=== PATIENT | male | born 1990 | race African-American/Black ===

== ENCOUNTER 2016-12-13 12:43 | Emergency (ER) | payer SELFPAY ==
[2016-12-13 13:11] LABS: Basophils % (Auto) 0.5 % (0.0-1.8); Eosinophils % (Auto) 0.3 % (0.0-4.3); Hematocrit 44.7 % (35.5-45.6); Hemoglobin 15.3 gm/dl (11.8-15.2); Mean Corpuscular HGB Conc 34 % (32-34); Mean Corpuscular Hemoglobin 29 pg (28-32); Mean Corpuscular Volume 86 fl (84-94); Platelet Count 203 K/mm3 (140-440); Red Blood Count 5.19 M/mm3 (3.65-5.03); Red Cell Distribution Width 12.5 % (13.2-15.2); White Blood Count 14.5 K/mm3 (4.5-11.0)
[2016-12-13 13:26] LABS: Alanine Aminotransferase 33 units/L (7-56); Albumin 4.3 g/dL (3.9-5); Albumin/Globulin Ratio 1.4 %; Alkaline Phosphatase 88 units/L (35-129); Anion Gap 16 mmol/L; BUN/Creatinine Ratio 6.66; Bilirubin,Total 0.8 mg/dL (0.1-1.2); Blood Urea Nitrogen 8 mg/dL (9-20); Calcium 9.2 mg/dL (8.4-10.2); Carbon Dioxide 27 mmol/L (22-30); Chloride 96.4 mmol/L (98-107); Glucose 102 mg/dL (75-100); Lipase 34 units/L (13-60); Potassium 3.6 mmol/L (3.6-5.0); Sodium 136 mmol/L (137-145); Total Protein 7.3 g/dL (6.3-8.2)
[2016-12-13 13:38] LABS: Bacteria,Urine 1+ /HPF (Negative); Bilirubin,Urine NEG (Negative); Blood,Urine MOD (Negative); Ketones,Urine 20 mg/dL (Negative); Leukocyte Esterase,Urine NEG (Negative); Mucus,Urine FEW /HPF; Nitrite,Urine NEG (Negative)
[2016-12-13] MEDS ORDERED: NACL 0.9% 1000 ML 1,000 ML IV ONE (18:59)
[2016-12-13] MEDS ORDERED: MORPHINE IV ONE (18:59)
[2016-12-13] MEDS ORDERED: ZOFRAN IV ONE (18:59)
[2016-12-13] MEDS ORDERED: TORADOL IV ONE (18:59)
[2016-12-13] MEDS ORDERED: PEPCID IV ONE (19:00)
--- NOTE | 2016-12-13 19:25 | Emergency Department Report ---
ED Abdominal Pain HPI - General Chief Complaint: Abdominal Pain Stated Complaint: RT SIDE PAIN Time Seen by Provider: 12/13/16 18:51 Source: patient Mode of arrival: Ambulatory Limitations: No Limitations - History of Present Illness Initial Comments: 26-year-old male with no significant past medical history presents to the hospital complaining of right upper quadrant pain for the past 3 days. Pain is described as sharp and bloating feeling, intermittent, rated 8/10 intensity, worse with palpation. No alleviating factors. Positive intermittent nausea vomiting reported without diarrhea, dysuria, fever, hematuria. - Related Data Home Medications Medication Instructions Recorded Confirmed Last Taken No Known Home Medications [No 12/13/16 12/13/16 Unknown Reported Home Medications] Allergies Allergy/AdvReac Type Severity Reaction Status Date / Time No Known Allergies Allergy Unverified 12/13/16 12:45 ED Review of Systems ROS: Stated complaint: RT SIDE PAIN Other details as noted in HPI Comment: All other systems reviewed and negative Other: Constitutional: No fevers chills Eyes: No eye pain visual changes ENT: No ear pain or throat pain Neck: Denies pain Respiratory: Denies cough wheezing shortness of breath Cardiovascular: Denies chest pain, palpitations, syncope GI: As per HPI : Denies dysuria Musculoskeletal: Denies back pain Skin: Denies rash, lesions, erythema Neurologic: Denies headache, numbness, weakness Psychiatric: Denies suicidal ideation, hallucinations ED Past Medical Hx - Past Medical History Previous Medical History?: No - Surgical History Past Surgical History?: Yes Additional Surgical History: Jaw surgery - Social History Smoking Status: Current Every Day Smoker Substance Use Type: Marijuana - Medications Home Medications: Home Medications Medication Instructions Recorded Confirmed Last Taken Type No Known Home Medications [No 12/13/16 12/13/16 Unknown History Reported Home Medications] ED Physical Exam - General Limitations: No Limitations - Other Other exam information: General: No limitations, patient is alert in no acute distress Head exam: Atraumatic, normocephalic Eyes exam: Normal appearance, pupils equal reactive to light, extraocular movements intact ENT: Moist mucous membrane, normal oropharynx Neck exam: Normal inspection, full range of motion Respiratory exam: Clear to auscultation bilateral, no wheezes, rales, crackles Cardiovascular: Normal rate and rhythm, normal heart sounds Abdomen: Soft, nondistended, right upper quadrant tenderness, with normal bowel sounds, no rebound, or guarding Extremity: Full range of motion normal inspection no deformity Back: Normal Inspection, full range of motion, no tenderness Neurologic: Alert, oriented x3, cranial nerves intact, no motor or sensory deficit Psychiatric: normal affect, normal mood Skin: Warm, dry, intact ED Course Vital Signs 12/13/16 12/13/16 12/13/16 12:45 20:35 20:41 Temperature 98.5 F Pulse Rate 87 84 Respiratory 18 12 18 Rate Blood Pressure 153/108 136/86 O2 Sat by Pulse 99 99 98 Oximetry 12/13/16 12/13/16 12/13/16 21:00 21:30 23:09 Temperature Pulse Rate 92 H 83 77 Respiratory 17 18 15 Rate Blood Pressure 131/90 123/76 129/75 O2 Sat by Pulse 99 99 99 Oximetry - Reevaluation(s) Reevaluation #1: 12/14/16 00:20 Patient's pain improved with morphine, Zofran, normal saline, and Toradol. Pepcid also given. Levaquin IV and additional liter of saline ordered after consultation with neurology and plan for transfer - Consultations Consultation #1: 12/14/16 00:[address] Wang interventional radiologist content strategist. Patient does not meet criteria for nephrostomy tube at this time. Recommend urology consultation for possible stent placement. Urgency is stent placement should be discussed with neurologist. Consultation #2: 12/14/16 00:01 We do not have urology content strategist today therefore [facility] urologist paged. Awaiting callback. 12/14/16 00:21 Dr. Traore urologist at [facility] has agreed to accept patient for transfer. ED Medical Decision Making - Lab Data Result diagrams: 12/13/16 12:55 12/13/16 12:55 Lab Results 12/13/16 12/13/16 12/13/16 Range/Units 12:55 12:55 13:04 WBC 14.5 H (4.5-11.0) K/mm3 RBC 5.19 H (3.65-5.03) M/mm3 Hgb 15.3 H (11.8-15.2) gm/dl Hct 44.7 (35.5-45.6) % MCV 86 (84-94) fl MCH 29 (28-32) pg MCHC 34 (32-34) % RDW 12.5 L (13.2-15.2) % Plt Count 203 (140-440) K/mm3 Lymph % (Auto) 13.6 (13.4-35.0) % Lee % (Auto) 11.1 H (0.0-7.3) % Eos % (Auto) 0.3 (0.0-4.3) % Baso % (Auto) 0.5 (0.0-1.8) % Lymph # 2.0 (1.2-5.4) K/mm3 Lee # 1.6 H (0.0-0.8) K/mm3 Eos # 0.1 (0.0-0.4) K/mm3 Baso # 0.1 (0.0-0.1) K/mm3 Seg Neutrophils % 74.5 H (40.0-70.0) % Seg Neutrophils # 10.8 H (1.8-7.7) K/mm3 Sodium 136 L (137-145) mmol/L Potassium 3.6 (3.6-5.0) mmol/L Chloride 96.4 L (98-107) mmol/L Carbon Dioxide 27 (22-30) mmol/L Anion Gap 16 mmol/L BUN 8 L (9-20) mg/dL Creatinine 1.2 (0.8-1.5) mg/dL Estimated GFR > 60 ml/min BUN/Creatinine Ratio 6.66 % Glucose 102 H (75-100) mg/dL Calcium 9.2 (8.4-10.2) mg/dL Total Bilirubin 0.8 (0.1-1.2) mg/dL AST 29 (5-40) units/L ALT 33 (7-56) units/L Alkaline Phosphatase 88 (35-129) units/L Total Protein 7.3 (6.3-8.2) g/dL Albumin 4.3 (3.9-5) g/dL Albumin/Globulin Ratio 1.4 % Lipase 34 (13-60) units/L Urine Color Yellow (Yellow) Urine Turbidity Cloudy (Clear) Urine pH 7.0 (5.0-7.0) Ur Specific [place] 1.019 (1.003-1.030) Urine Protein 30 mg/dl (Negative) mg/dL Urine Glucose (UA) Neg (Negative) mg/dL Urine Ketones 20 (Negative) mg/dL Urine Blood Mod (Negative) Urine Nitrite Neg (Negative) Urine Bilirubin Neg (Negative) Urine Urobilinogen 2.0 (<2.0) mg/dL Ur Leukocyte Esterase Neg (Negative) Urine WBC (Auto) 14.0 H (0.0-6.0) /HPF Urine RBC (Auto) 64.0 (0.0-6.0) /HPF Urine Bacteria (Auto) 1+ (Negative) /HPF Amorphous Crystals 1+ Urine Mucus Few /HPF - Radiology Data Radiology results: report reviewed Abdominal ultrasound: Gallbladder normal. Right kidney shows mild hydronephrosis this is nonspecific. Distal ureteral obstructive process cannot be excluded because of this. Small amount nonspecific free fluid in the posterior upper right abdomen. CT abdomen and pelvis without contrast: 8 mm partially obstructing stone in the very proximal right ureter slightly beyond the right renal pelvis. This is causing moderate right hydronephrosis and dilatation of the very proximal right ureter. - Medical Decision Making Unfortunately we do not have urology coverage. Case discussed with urologist Dr. Traore at [facility]. 8 mm stone unlikely to pass. She has agreed to accept patient for transfer and admission for lithotripsy/stenting. - Differential Diagnosis biliary colic, hepatitis, pancreatitis, gastritis, cholecystitis Critical Care Time: No Critical care attestation.: If time is entered above; I have spent that time in minutes in the direct care of this critically ill patient, excluding procedure time. ED Disposition Clinical Impression: Right ureteral stone, Renal colic on right side Disposition: DISCHARGED TO HOME OR SELFCARE Is pt being admited?: No Does the pt Need Aspirin: No Condition: Stable Time of Disposition: 00:19 (Transfer to [facility] Dr Traore)
--- NOTE | 2016-12-13 20:35 | Ultrasound Report ---
FINAL REPORT PROCEDURE: US ABDOMEN LIMITED TECHNIQUE: Real-time sonography was performed of the right upper quadrant gallbladder region with image documentation. CPT 46908 HISTORY: Right upper quadrant abdominal pain. Nausea and vomiting COMPARISON: No prior studies are available for comparison. FINDINGS: There is no ultrasound evidence of stones or sludge in the gallbladder. The gallbladder wall thickness is normal measuring 2.6 millimeters. The common bile duct is normal measuring 2.9 millimeters. The visualized portions of liver show no ultrasound abnormality. The proximal abdominal aorta has normal measurement at 2.0 millimeters in diameter. The mid and distal aorta is are not seen. The pancreas shows no ultrasound abnormality. The right kidney measures 12.7 centimeters in length. The right kidney shows mild hydronephrosis. The right kidney shows no contour abnormality by ultrasound otherwise. There is no ultrasound evidence of echogenic calculi within kidney itself. A small amount of nonspecific free fluid is noted in the abdomen in Morison's pouch anterior to the right kidney. The left kidney and the spleen are not evaluated on this limited right upper quadrant gallbladder region only ultrasound.. IMPRESSION: 1. The right kidney shows mild hydronephrosis. This is nonspecific. However a distal ureteral obstructive process cannot be excluded because of this. 2. The gallbladder shows no ultrasound abnormality. 3. There is a small amount of nonspecific free fluid in the posterior upper right abdomen.
--- NOTE | 2016-12-13 23:16 | Cat Scan Report ---
FINAL REPORT PROCEDURE: CT ABDOMEN PELVIS WO CON TECHNIQUE: Computerized axial tomography of the abdomen and pelvis was performed without intravenous contrast. This study is performed without intravascular contrast material and its sensitivity for abdominal and pelvic pathology, including neoplasms, inflammation, abscess, free fluid, thrombosis, arterial dissection and infarction, is reduced compared with a contrast enhanced study. Oral contrast was also not given HISTORY: Right-sided abdominal pain. Hematuria. Vomiting. COMPARISON: There no prior CT scans to compare. Reference is made to abdomen ultrasound performed earlier on this same day of December 13, 2016 FINDINGS: Visualized lower thorax: There is mild atelectasis in both lung bases.. Liver: Normal size and attenuation. Spleen: Normal size and attenuation. Gallbladder and biliary system: Normal. Pancreas: Normal. Adrenals: Normal. Kidneys: There is moderate hydronephrosis of the right kidney and mild dilation of the proximal right ureter down to an 8 millimeter partially obstructing stone in the very proximal right ureter about 2 centimeters beyond the renal pelvis. This stone is roughly at the level of the L2-L3 disc space. The left kidney and ureter appear unremarkable. GI tract: The bowel appears unremarkable when considering lack of oral contrast. The appendix is seen and appears normal. Lymph nodes and mesentery: Normal. Vasculature: Normal. Bladder: Normal. Reproductive organs: Normal. Peritoneum: No free fluid. Musculoskeletal structures: No significant abnormality. Other: None. IMPRESSION: 1. There is an 8 millimeter partially obstructing stone in the very proximal right ureter slightly beyond the right renal pelvis. This is causing moderate right hydronephrosis and dilation of the very proximal right ureter 2. The left kidney appears unremarkable for noncontrast scan. 3. There is mild atelectasis in both lung bases.
[2016-12-14] MEDS ORDERED: LEVAQUIN 750MG/150ML 750 MG/150 ML BAG IV ONE (00:15)
[2016-12-14] MEDS ORDERED: NACL 0.9% 1000 ML 1,000 ML IV ONE (00:18)
[2016-12-14 02:18] VITALS: BP 128/83
== END 2016-12-14 03:00 | disposition home or self-care (01) ==
LOC: ED 12:43
DX: N21.1 Calculus in urethra (principal); N23 Unspecified renal colic; F17.200 Nicotine dependence, unspecified, uncomplicated; F12.10 Cannabis abuse, uncomplicated
CPT/HCPCS: 36415; 74176; 76705; 80053; 81001; 83690; 85025; 96361; 96365; 96375; 99284; J1885; J1956; J2270; J2405; J7030

== ENCOUNTER 2017-04-03 17:23 | Emergency (ER) | payer SELFPAY ==
[2017-04-03 19:07] LABS: Anion Gap 19 mmol/L; BUN/Creatinine Ratio 11.81; Blood Urea Nitrogen 13 mg/dL (9-20); Calcium 9.5 mg/dL (8.4-10.2); Carbon Dioxide 24 mmol/L (22-30); Chloride 100.1 mmol/L (98-107); Glucose 119 mg/dL (75-100); Potassium 3.6 mmol/L (3.6-5.0); Sodium 139 mmol/L (137-145)
[2017-04-03 19:31] LABS: Bilirubin,Urine NEG (Negative); Blood,Urine LG (Negative); Ketones,Urine 20 mg/dL (Negative); Leukocyte Esterase,Urine LG (Negative); Mucus,Urine 3+ /HPF; Nitrite,Urine NEG (Negative)
[2017-04-03 19:34] LABS: Basophils % (Auto) 0.4 % (0.0-1.8); Eosinophils % (Auto) 0.5 % (0.0-4.3); Hematocrit 43.1 % (35.5-45.6); Mean Corpuscular HGB Conc 35 % (32-34); Mean Corpuscular Hemoglobin 30 pg (28-32); Mean Corpuscular Volume 86 fl (84-94); Platelet Count 217 K/mm3 (140-440); Red Blood Count 5.04 M/mm3 (3.65-5.03); Red Cell Distribution Width 12.6 % (13.2-15.2); White Blood Count 11.7 K/mm3 (4.5-11.0)
[2017-04-03 19:35] LABS: RBC,Urine > 182.0 /HPF (0.0-6.0)
--- NOTE | 2017-04-03 23:03 | Cat Scan Report ---
FINAL REPORT EXAM: CT ABDOMEN PELVIS WO CON HISTORY: flank pain TECHNIQUE: CT images obtained through the Abdomen and Pelvis without contrast. Transaxial,coronal and sagittal reformats are provided. PRIORS: 12/13/2016 FINDINGS: Imaged intrathoracic contents are unremarkable. Right ureteral stent. Moderate right hydroureteronephrosis. 6 millimeter mid ureteral stone on axial series 3, image 80 is not significantly changed from 12/13/2016. Kidneys are normal in size, axis and position. No left hydroureteronephrosis. We left-sided nephrolithiasis measures 1-2 millimeters. No stones are seen within the urinary bladder. The liver, gallbladder, pancreas, spleen, and adrenal glands demonstrate a normal noncontrast appearance. Hollow enteric organs are normal in course and caliber. Appendix is normal. No intra-abdominal free air/fluid or lymphadenopathy. Aorta is normal in course and caliber. Superficial soft tissues are unremarkable. No acute or aggressive appearing skeletal findings. IMPRESSION: Moderate right hydronephrosis due to a mid right ureteral 6 millimeter obstructing stone, which is not significantly changed in location from 12/13/2016. A right ureteral stent is in place.
[2017-04-04] MEDS ORDERED: ROCEPHIN/NS 1 GM/50 ML 1 GM/50 ML BAG IV ONE (02:50)
[2017-04-04] MEDS ORDERED: MORPHINE IV ONE (02:50)
--- NOTE | 2017-04-04 04:49 | Emergency Department Report ---
ED General Adult HPI - General Chief complaint: Abdominal Pain Stated complaint: BLOOD IN URINE Time Seen by Provider: 04/04/17 01:56 Source: patient, RN notes reviewed, old records reviewed Mode of arrival: Ambulatory Limitations: No Limitations - History of Present Illness Initial comments: This is a 26-year-old male. He is previously unknown to me. Patient has a history of right sided kidney stone, and stent placement. Patient seen at this hospital December 2016, diagnosed with obstructing right-sided kidney stone, and was transferred to [facility] for stent placement. The patient presents to the ER with 1 month of right-sided flank pain, and dysuria. His symptoms are not worsened today. There is no headache, neck pain , chest pain, shortness of breath or testicular pain. No fevers or chills. No diaphoresis. He reports he was unable to follow up with outpatient urology secondary to insurance issues. -: Gradual, week(s) Location: abdomen Severity scale (0 -10): 10 Improves with: none Worsens with: none Associated Symptoms: denies: confusion, chest pain, cough, diaphoresis, headaches, loss of appetite, malaise, nausea/vomiting, shortness of breath, syncope, weakness - Related Data Previous Rx's Medication Instructions Recorded Last Taken Type Ketorolac [Toradol] 10 mg PO Q6H PRN #20 tablet 04/04/17 Unknown Rx Levofloxacin [Levaquin] 750 mg PO QDAY #7 tablet 04/04/17 Unknown Rx Metoclopramide [Reglan] 10 mg PO QID PRN #30 tablet 04/04/17 Unknown Rx Tamsulosin [Flomax] 0.4 mg PO QDAY #30 cap 04/04/17 Unknown Rx oxyCODONE [Roxicodone] 5 mg PO Q6HR PRN #15 tablet 04/04/17 Unknown Rx Allergies Allergy/AdvReac Type Severity Reaction Status Date / Time No Known Allergies Allergy Unverified 04/03/17 18:26 ED Review of Systems ROS: Stated complaint: BLOOD IN URINE Other details as noted in HPI Constitutional: denies: fever Eyes: denies: eye discharge ENT: denies: epistaxis Respiratory: denies: cough Cardiovascular: denies: chest pain Gastrointestinal: abdominal pain Genitourinary: dysuria Musculoskeletal: back pain Skin: denies: lesions Neurological: denies: headache, weakness Psychiatric: denies: anxiety ED Past Medical Hx - Past Medical History Previous Medical History?: Yes Hx Kidney Stones: Yes - Surgical History Past Surgical History?: Yes Additional Surgical History: Jaw surgery - Social History Smoking Status: Current Every Day Smoker Substance Use Type: None - Medications Home Medications: Home Medications Medication Instructions Recorded Confirmed Last Taken Type Ketorolac [Toradol] 10 mg PO Q6H PRN #20 tablet 04/04/17 Unknown Rx Levofloxacin [Levaquin] 750 mg PO QDAY #7 tablet 04/04/17 Unknown Rx Metoclopramide [Reglan] 10 mg PO QID PRN #30 tablet 04/04/17 Unknown Rx Tamsulosin [Flomax] 0.4 mg PO QDAY #30 cap 04/04/17 Unknown Rx oxyCODONE [Roxicodone] 5 mg PO Q6HR PRN #15 tablet 04/04/17 Unknown Rx ED Physical Exam - General Limitations: No Limitations General appearance: alert, in no apparent distress - Head Head exam: Present: atraumatic, normocephalic - Eye Eye exam: Present: normal appearance, EOMI. Absent: nystagmus - ENT ENT exam: Present: normal exam, normal orophraynx, mucous membranes moist, normal external ear exam - Neck Neck exam: Present: normal inspection, full ROM. Absent: tenderness, meningismus - Respiratory Respiratory exam: Present: normal lung sounds bilaterally. Absent: respiratory distress, wheezes, rales, rhonchi, stridor, chest wall tenderness - Cardiovascular Cardiovascular Exam: Present: regular rate, normal rhythm, normal heart sounds. Absent: bradycardia, tachycardia, irregular rhythm, systolic murmur, diastolic murmur, rubs, gallop - GI/Abdominal GI/Abdominal exam: Present: soft, normal bowel sounds. Absent: distended, tenderness, guarding, rebound, rigid, pulsatile mass - Rectal Rectal exam: Present: deferred - exam: Present: normal inspection. Absent: testicular tenderness External exam: Present: normal external exam, other (there is no testicular tenderness. There is normal testicular lie bilaterally. There is normal cremasteric reflex bilaterally.) - Extremities Exam Extremities exam: Present: normal inspection, full ROM - Back Exam Back exam: Present: normal inspection, full ROM. Absent: tenderness, CVA tenderness (R), CVA tenderness (L), muscle spasm, paraspinal tenderness, vertebral tenderness - Neurological Exam Neurological exam: Present: alert, oriented X3, normal gait, other (Extraocular movements intact. Tongue midline. No facial droop. Facial sensation intact to light touch in the V1, V2, V3 distribution bilaterally. 5 and 5 strength in 4 extremities.. Sensation is intact to light touch in 4 extremities.). Absent : motor sensory deficit - Psychiatric Psychiatric exam: Present: normal affect, normal mood - Skin Skin exam: Present: warm, dry, intact, normal color. Absent: rash ED Course Vital Signs 04/03/17 04/04/17 04/04/17 18:21 00:04 04:26 Temperature 98.5 F Pulse Rate 103 H 83 Respiratory 16 16 16 Rate Blood Pressure 147/107 152/105 Blood Pressure [Left] O2 Sat by Pulse 98 99 100 Oximetry 04/04/17 05:00 Temperature 98 F Pulse Rate 74 Respiratory 16 Rate Blood Pressure Blood Pressure 118/78 [Left] O2 Sat by Pulse 100 Oximetry ED Medical Decision Making - Lab Data Result diagrams: 04/03/17 18:37 04/03/17 18:37 Vital Signs 04/03/17 04/04/17 18:21 00:04 Temperature 98.5 F Pulse Rate 103 H 83 Respiratory 16 16 Rate Blood Pressure 147/107 152/105 O2 Sat by Pulse 98 99 Oximetry Lab Results 04/03/17 04/03/17 04/03/17 Range/Units 18:37 18:37 18:40 WBC 11.7 H (4.5-11.0) K/mm3 RBC 5.04 H (3.65-5.03) M/mm3 Hgb 15.0 (11.8-15.2) gm/dl Hct 43.1 (35.5-45.6) % MCV 86 (84-94) fl MCH 30 (28-32) pg MCHC 35 H (32-34) % RDW 12.6 L (13.2-15.2) % Plt Count 217 (140-440) K/mm3 Lymph % (Auto) 16.5 (13.4-35.0) % [place] % (Auto) 7.3 (0.0-7.3) % Eos % (Auto) 0.5 (0.0-4.3) % Baso % (Auto) 0.4 (0.0-1.8) % Lymph # 1.9 (1.2-5.4) K/mm3 [place] # 0.9 H (0.0-0.8) K/mm3 Eos # 0.1 (0.0-0.4) K/mm3 Baso # 0.0 (0.0-0.1) K/mm3 Seg Neutrophils % 75.3 H (40.0-70.0) % Seg Neutrophils # 8.8 H (1.8-7.7) K/mm3 Sodium 139 (137-145) mmol/L Potassium 3.6 (3.6-5.0) mmol/L Chloride 100.1 (98-107) mmol/L Carbon Dioxide 24 (22-30) mmol/L Anion Gap 19 mmol/L BUN 13 (9-20) mg/dL Creatinine 1.1 (0.8-1.5) mg/dL Estimated GFR > 60 ml/min BUN/Creatinine Ratio 11.81 % Glucose 119 H (75-100) mg/dL Calcium 9.5 (8.4-10.2) mg/dL Urine Color Yellow (Yellow) Urine Turbidity Slightly-cloudy (Clear) Urine pH 5.0 (5.0-7.0) Ur Specific [place] 1.028 (1.003-1.030) Urine Protein 100 mg/dl (Negative) mg/dL Urine Glucose (UA) Neg (Negative) mg/dL Urine Ketones 20 (Negative) mg/dL Urine Blood Lg (Negative) Urine Nitrite Neg (Negative) Urine Bilirubin Neg (Negative) Urine Urobilinogen 4.0 (<2.0) mg/dL Ur Leukocyte Esterase Lg (Negative) Urine WBC (Auto) 79.0 H (0.0-6.0) /HPF Urine RBC (Auto) > 182.0 (0.0-6.0) /HPF U Epithel Cells (Auto) 2.0 (0-13.0) /HPF Calcium Oxalate Crystal 2+ Urine Mucus 3+ /HPF - Radiology Data Radiology results: report reviewed, image reviewed Noncontrast CT scan of the abdomen and pelvis: There is a right-sided ureteral stents. There is moderate hydroureteronephrosis. There is a 6 mm kidney stone on the right side, which is not significantly change from prior CT scan. Right ureteral stents noted to be in place. - Medical Decision Making Differential diagnosis: Renal colic, urinary tract infection Assessment and plan: 26-year-old male with 1 month of flank pain and dysuria. He is afebrile with reassuring vital signs, with no abdominal tenderness or rebound, urinalysis to suggest urinary tract infection. He is nontoxic appearing. Right-sided nephrostomy tube is in place. Given chronicity of symptoms, normal vital signs, benign physical examination, the patient does not require emergency transfer or urologic consultation. I did discuss the case with the urology surgeon on-call for [facility], Dr Ramon Langston, who recommended the patient follow up this next week, and contact the office on Thursday. The patient will be discharged with pain medication, nausea medication, tamsulosin, instructions to follow up. The patient was counseled as to the importance of close outpatient follow-up. He did verbalize understanding. Critical care attestation.: If time is entered above; I have spent that time in minutes in the direct care of this critically ill patient, excluding procedure time. ED Disposition Clinical Impression: Nephrolithiasis, Dysuria Disposition: - TO HOME OR SELFCARE Is pt being admited?: No Does the pt Need Aspirin: No Condition: Stable Instructions: Kidney Stones (ED) Additional Instructions: Take medications as directed. Do not consume alcohol while taking the medications. Follow up with a urology specialist within the next week. Dr. Leary is a local urology specialist. Alternatively, you may follow up with [facility], where her stent was placed. Contact the [facility] at the following phone number: [phone] Return to the ER right away with new pain, worsened pain, migration of pain, fevers, chills, chest pain, shortness of breath, confusion, intractable nausea or vomiting, inability to tolerate liquid feeds. You may also contact [facility] at the following phone number: [phone] Prescriptions: Ketorolac [Toradol] 10 mg PO Q6H PRN #20 tablet PRN Reason: Pain Levofloxacin [Levaquin] 750 mg PO QDAY #7 tablet Metoclopramide [Reglan] 10 mg PO QID PRN #30 tablet PRN Reason: Nausea oxyCODONE [Roxicodone] 5 mg PO Q6HR PRN #15 tablet PRN Reason: Pain Tamsulosin [Flomax] 0.4 mg PO QDAY #30 cap Referrals: PRIMARY CARE, [Primary Care Provider] - 3-5 Days ORESTES AUGUSTIN MD [Staff Physician] - 3-5 Days
[2017-04-04 05:31] VITALS: BP 118/78
== END 2017-04-04 05:00 | disposition home or self-care (01) ==
LOC: ED 17:23
DX: N20.0 Calculus of kidney (principal); R30.0 Dysuria; F17.200 Nicotine dependence, unspecified, uncomplicated
CPT/HCPCS: 36415; 74176; 80048; 81001; 85025; 87086; 96365; 96375; 99284; J0696; J2270